=== PATIENT | male | born 1940 | race Caucasian/White ===

== ENCOUNTER 2018-10-22 07:04 | Outpatient (CLI) | payer MEDICARE, BC ==
[~2018-10-22] VITALS: Ht 177.8 cm; Wt 117.9 kg
[~2018-10-22 07:04] MED LIST: AMIO200T40 PO; ASPI-1071 PO; CARV6.252 PO; EZET1TAB35 PO; FLUO20CA22 PO; HYDR-4069 PO; LISI10TA4 PO; TERA2CAP4 PO; fish oil PO
[2018-10-22] MEDS ORDERED: albuterol 2.5 MG/3 ML nebule NEB ONE (08:00)
== END 2018-10-22 23:59 | disposition home or self-care (01) ==
LOC: RT 07:04
PROVIDERS: ATTEND Internal Medicine Cardiovascular Disease
DX: Z51.81 Encounter for therapeutic drug level monitoring (principal); R91.8 Other nonspecific abnormal finding of lung field; R06.09 Other forms of dyspnea; F17.210 Nicotine dependence, cigarettes, uncomplicated; I11.0 Hypertensive heart disease with heart failure; I50.9 Heart failure, unspecified; J44.9 Chronic obstructive pulmonary disease, unspecified; I25.2 Old myocardial infarction; Z79.82 Long term (current) use of aspirin; Z79.899 Other long term (current) drug therapy
CPT/HCPCS: 71046; 85018; 94010; 94727; 94729

== ENCOUNTER 2020-02-28 07:22 | Emergency (ER) | payer MEDICARE, BC ==
[~2020-02-28] VITALS: Ht 177.8 cm; Wt 121.4 kg
[~2020-02-28 07:22] MED LIST changes: -AMIO200T40 PO; +AMIO200T61 PO; +FLUO-213 PO; -FLUO20CA22 PO
[2020-02-28] MEDS ORDERED: aspirin 81mg tab.chew PO ONE (07:35)
[2020-02-28 07:58] LABS: BASOPHILS % (AUTO) 0.9 % (0-1); EOSINOPHILS # (AUTO) 0.1 X10'3 (0-0.9); EOSINOPHILS % (AUTO) 1.6 % (0-6); HEMATOCRIT 45.9 % (42.0-52.0); HEMOGLOBIN 15.6 g/dl (14.0-17.9); LYMPHOCYTES % (AUTO) 17.6 % (21-51); MEAN PLATELET VOLUME 8.4 FL (7.4-10.4); MONOCYTES # (AUTO) 0.6 X10'3 (0-0.9); MONOCYTES % (AUTO) 10.1 % (2-12); NEUTROPHILS % (AUTO) 69.8 % (42-75); PLATELET COUNT 136 X10'3 (140-440); RED BLOOD COUNT 4.88 X10'6 (4.70-6.10); RED CELL DISTRIBUTION WIDTH 14.4 % (11.5-14.5); WHITE BLOOD COUNT 5.7 X10'3 (4.5-11.0)
--- NOTE | 2020-02-28 08:01 | NUR ---
Aspirin not given, patient had 4 baby asa given enroute by ems. Dr Carlson aware
[2020-02-28 08:15] LABS: ALANINE AMINOTRANSFERASE 20 U/L (12-78); ALBUMIN 3.3 G/DL (3.4-5.0); ALKALINE PHOSPHATASE 53 IU/L (46-116); ANION GAP 7 (8-16); ASPARTATE AMINO TRANSFERASE 15 U/L (10-37); BILIRUBIN,TOTAL 0.7 MG/DL (0.1-1.0); BLOOD UREA NITROGEN 23 MG/DL (7-18); BUN/CREATININE RATIO 14.1 (5.4-32.0); CALCIUM 9.2 MG/DL (8.5-10.1); CHLORIDE 107 MMOL/L (99-107); CREATININE 1.63 MG/DL (0.60-1.10); GLUCOSE 102 MG/DL (70-104); POTASSIUM 3.7 MMOL/L (3.5-5.1); SODIUM 138 MMOL/L (135-145); TOTAL CARBON DIOXIDE 23.7 MMOL/L (24-32); TOTAL PROTEIN 6.7 G/DL (6.4-8.2); eGFR 41 ML/MIN
[2020-02-28] MEDS ORDERED: normal saline 1000ml 1,000 ML IV SCH (11:39)
[2020-02-28] MEDS ORDERED: ondansetron/PF 4mg/2ml inj IV PRN (11:40)
[2020-02-28] MEDS ORDERED: acetaminophen 325mg tablet PO PRN (11:40)
[2020-02-28] MEDS ORDERED: magnesium hydroxide 30ml (MOM) UD suspension PO PRN (11:40)
[2020-02-28] MEDS ORDERED: morphine 2 MG/ML inj. syringe IV PRN ×2 (11:40)
[2020-02-28] MEDS ORDERED: mag hydrox/Alum hydrox/simeth 30ml oral suspension PO PRN (11:40)
[2020-02-28 12:28] VITALS: BP 128/58
[2020-02-28] MEDS ORDERED: heparin, porcine 5000 units/ml vial SQ SCH (20:00)
== END 2020-02-28 12:31 | disposition home or self-care (01) ==
LOC: ER 07:23 → ED HOLD 11:39 → UNDOADMIN 11:39 → EDBEDREQ 11:46 → UNDODISIN 17:00
DX: R07.89 Other chest pain (principal); I25.10 Atherosclerotic heart disease of native coronary artery without angina pectoris; E78.00 Pure hypercholesterolemia, unspecified; Z95.0 Presence of cardiac pacemaker; Z88.5 Allergy status to narcotic agent; Z79.82 Long term (current) use of aspirin; Z79.899 Other long term (current) drug therapy
CPT/HCPCS: 36415; 71045; 80053; 83735; 83880; 84484; 85025; 93005; 99285; G0378

== ENCOUNTER 2021-03-22 07:28 | Outpatient (CLI) | payer MEDICARE, BC ==
[~2021-03-22 07:28] MED LIST changes: +LISI10TA27 PO; -LISI10TA4 PO; -fish oil PO
[2021-03-22 07:56] LABS: TOTAL HEMOGLOBIN 16.2 G/dl (14.0-18.0)
== END 2021-03-22 23:59 | disposition home or self-care (01) ==
LOC: RT 07:28
PROVIDERS: ATTEND Internal Medicine Cardiovascular Disease
DX: I51.7 Cardiomegaly (principal); J98.8 Other specified respiratory disorders; I50.22 Chronic systolic (congestive) heart failure; M47.814 Spondylosis without myelopathy or radiculopathy, thoracic region; Z79.899 Other long term (current) drug therapy
CPT/HCPCS: 71046; 85018; 94010; 94727; 94729

== ENCOUNTER 2023-06-26 09:55 | Day surgery (SDC) | payer MEDICARE, BC ==
[2023-06-25 09:25] LABS: BASOPHILS % (AUTO) 0.7 % (0-1); EOSINOPHILS # (AUTO) 0.1 X10'3 (0-0.9); HEMATOCRIT 46.1 % (42.0-52.0); HEMOGLOBIN 15.6 g/dl (14.0-17.9); LYMPHOCYTES % (AUTO) 19.2 % (21-51); MEAN CORPUSCULAR HEMOGLOBIN 31.4 PG (27.0-31.0); MEAN CORPUSCULAR HGB CONC 33.9 g/dL (33.0-36.5); MEAN CORPUSCULAR VOLUME 92.6 FL (78-98); MEAN PLATELET VOLUME 7.7 FL (7.4-10.4); MONOCYTES # (AUTO) 0.5 X10'3 (0-0.9); MONOCYTES % (AUTO) 10.2 % (2-12); NEUTROPHILS # (AUTO) 3.5 X10'3 (1.8-7.7); NEUTROPHILS % (AUTO) 67.9 % (42-75); PLATELET COUNT 145 X10'3 (140-440); RED BLOOD COUNT 4.98 X10'6 (4.70-6.10); RED CELL DISTRIBUTION WIDTH 14.7 % (11.5-14.5); WHITE BLOOD COUNT 5.1 X10'3 (4.5-11.0)
[2023-06-25 09:32] LABS: ALBUMIN 3.3 G/DL (3.4-5.0); ANION GAP 10 (8-16); CALCIUM 9.6 MG/DL (8.5-10.1); CHLORIDE 102 MMOL/L (99-107); CREATININE 1.93 MG/DL (0.60-1.10); GLUCOSE 96 MG/DL (70-104); POTASSIUM 4.4 MMOL/L (3.5-5.1); SODIUM 136 MMOL/L (135-145); TOTAL CARBON DIOXIDE 24.3 MMOL/L (24-32); eGFR 33 ML/MIN
[2023-06-25 09:35] LABS: APTT 29 SECONDS (22-32); BLOOD UREA NITROGEN 32 MG/DL (7-18); BUN/CREATININE RATIO 16.6 (10.0-20.0); INR 1.1 INR; PROTHROMBIN TIME 11.5 SECONDS (9.0-12.0)
[2023-06-26] VITALS (11 sets, daily range): BP systolic 88–130; BP diastolic 33–73; PULSE 70–73; RESP 12–27; TEMP 97.5; O2SAT 95–98
[~2023-06-26] VITALS: Ht 177.8 cm; Wt 107.5 kg
[~2023-06-26 09:55] MED LIST changes: +AMI200T PO; -AMIO200T61 PO
[2023-06-26] MEDS ORDERED: acetylcysteine 200 MG/ml 4ml vial PO PRN (10:15)
[2023-06-26] MEDS ORDERED: diphenhydrAMINE 25mg capsule PO PRN (10:15)
[2023-06-26] MEDS ORDERED: normal saline 1,000 ML IV SCH (10:15)
[2023-06-26] MEDS ORDERED: LORazepam 0.5 MG tablet PO PRN (10:15)
[2023-06-26] MEDS ORDERED: sodium bicarbonate 1meq/ml syr 150 ML in dextrose 5%-water 1,000 ML IV SCH (10:20)
[2023-06-26] MEDS ORDERED: nitroGLYCERIN-Tridil 50MG/D5W 250 ML IV ONE (11:24)
[2023-06-26] MEDS ORDERED: verapamil 2.5 mg/ml inj IV ONE (11:25)
[2023-06-26] MEDS ORDERED: midazolam 1 mg/ML 2ml injection ONE (11:25)
[2023-06-26] MEDS ORDERED: LIDOcaine 1% 30ml preserv. free vial ONE (11:25)
[2023-06-26] MEDS ORDERED: iohexol 350MG/ML 100ml bottle IV ONE (11:26)
[2023-06-26] MEDS ORDERED: heparin 1,000unit/ml 10ml vial 10 ML ONE (11:26)
[2023-06-26] MEDS ORDERED: iohexol 350 MG/ML 50ML vial IV ONE (11:26)
[2023-06-26] MEDS ORDERED: fentaNYL/PF 50MCG/1 ML 2ML syringe ONE (11:26)
[2023-06-26] MEDS ORDERED: LIDOcaine 1% (10mg/ml) 2ml vial ONE ×2 (11:27→11:36)
[2023-06-26] MEDS ORDERED: EZET-59 PO (12:14)
[2023-06-26] MEDS ORDERED: OMEG100037 PO (12:14)
[2023-06-26] MEDS ORDERED: ASPI-1265 PO (12:14)
[2023-06-26] MEDS ORDERED: CARV-50 PO (12:14)
[2023-06-26 12:37] LABS: ISTAT HGB ART 13.9 g/dl (14.0-17.9); ISTAT Hct ART 41 %PCV (42-52); ISTAT O2 SATURATION ARTERIAL 96 % (95-98); ISTAT SOURCE ART
[2023-06-26 13:08] LABS: ISTAT HGB MIX 14.3 g/dl (14.0-17.9); ISTAT Hct MIX 42 %PCV (42-52); ISTAT O2 SATURATION MIX VENOUS 68 % (60-80); ISTAT SOURCE VEN
== END 2023-06-26 17:45 | disposition home or self-care (01) ==
LOC: SSTAY O 09:55
PROVIDERS: ATTEND Internal Medicine Cardiovascular Disease
DX: T82.855A Stenosis of coronary artery stent, initial encounter (principal); I25.810 Atherosclerosis of coronary artery bypass graft(s) without angina pectoris; I11.0 Hypertensive heart disease with heart failure; I50.30 Unspecified diastolic (congestive) heart failure; I48.0 Paroxysmal atrial fibrillation; I49.5 Sick sinus syndrome; E78.5 Hyperlipidemia, unspecified; I08.1 Rheumatic disorders of both mitral and tricuspid valves; G47.33 Obstructive sleep apnea (adult) (pediatric); E66.9 Obesity, unspecified; Z68.35 Body mass index [BMI] 35.0-35.9, adult; J44.9 Chronic obstructive pulmonary disease, unspecified; F32.A Depression, unspecified; N40.0 Benign prostatic hyperplasia without lower urinary tract symptoms; M19.90 Unspecified osteoarthritis, unspecified site; Z95.0 Presence of cardiac pacemaker; Z98.890 Other specified postprocedural states; Z79.899 Other long term (current) drug therapy; Z87.891 Personal history of nicotine dependence; Z88.5 Allergy status to narcotic agent; Y84.0 Cardiac catheterization as the cause of abnormal reaction of the patient, or of later complication, without mention of misadventure at the time of the procedure; Y92.89 Other specified places as the place of occurrence of the external cause
CPT/HCPCS: 36415; 76937; 80048; 82803; 85014; 85025; 85610; 85730; 93005; 93461; 99152; 99153; A6258; J1644; J2250; J3010; J3490; J7030; J7070; Q9967; A6402; C1725; C1751; C1894

== ENCOUNTER 2023-11-16 21:59 | Inpatient (IN) | payer MEDICARE, BC ==
[~2023-11-16] VITALS: Ht 177.8 cm; Wt 104.0 kg
[~2023-11-16 21:59] MED LIST changes: -ASPI-1071 PO; +ASPI-1265 PO; +CARV-50 PO; -CARV6.252 PO; +EZET-59 PO; -EZET1TAB35 PO; +OMEG100037 PO
[2023-11-16] MEDS ORDERED: normal saline 1000ML IV soln IVB ONE (22:20)
[2023-11-16 22:39] LABS: RED BLOOD COUNT 1.49 X10'6 (4.70-6.10)
[2023-11-16 22:41] LABS: MEAN CORPUSCULAR HEMOGLOBIN 26.5 PG (27.0-31.0); MEAN CORPUSCULAR HGB CONC 31.7 g/dL (33.0-36.5); MEAN CORPUSCULAR VOLUME 83.6 FL (78-98); MEAN PLATELET VOLUME 7.3 FL (7.4-10.4); PLATELET COUNT 101 X10'3 (140-440); RED CELL DISTRIBUTION WIDTH 16.8 % (11.5-14.5)
[2023-11-16 22:43] LABS: INR 1.9 INR; PROTHROMBIN TIME 19.9 SECONDS (9.0-12.0)
[2023-11-16 22:54] LABS: ALBUMIN/GLOBULIN RATIO 0.7 (1.1-1.5); ALKALINE PHOSPHATASE 13 IU/L (46-116); ANION GAP 14 (8-16); ASPARTATE AMINO TRANSFERASE 9 U/L (10-37); BILIRUBIN,TOTAL 0.2 MG/DL (0.1-1.0); BLOOD UREA NITROGEN 20 MG/DL (7-18); BUN/CREATININE RATIO 24.4 (10.0-20.0); CREATININE 0.82 MG/DL (0.60-1.10); GLUCOSE 68 MG/DL (70-104); PRO BRAIN NATRIURETIC PEPTIDE 349 PG/ML (0-450); SODIUM 148 MMOL/L (135-145); TOTAL PROTEIN 2.4 G/DL (6.4-8.2); eCRCL 69 ML/MIN; eGFR 90 ML/MIN
[2023-11-16] MEDS ORDERED: pantoprazole 40 MG vial IV ONE (23:05)
[2023-11-16] MEDS ORDERED: pantoprazole 40mg IV 80 MG in normal saline 100ml IV soln 100 ML IV ONE (23:05)
[2023-11-16 23:07] LABS: HEMATOCRIT 12.4 % (42.0-52.0); HEMOGLOBIN 3.9 g/dl (14.0-17.9)
[2023-11-16] MEDS ORDERED: acetaminophen 1,000mg/100ml IV 100 ML IV STA (23:10)
[2023-11-16] MEDS ORDERED: tranexamic acid inj. 1,000 MG in normal saline 100ml IV soln 90 ML IV ONE (23:10)
[2023-11-16 23:23] LABS: CHLORIDE 125 MMOL/L (99-107)
[2023-11-16 23:25] LABS: ALANINE AMINOTRANSFERASE < 6 U/L (12-78)
[2023-11-16 23:26] LABS: CALCIUM < 5.0 MG/DL (8.5-10.1); TOTAL CARBON DIOXIDE 9 MMOL/L (24-32)
[2023-11-16 23:27] LABS: POTASSIUM 1.7 MMOL/L (3.5-5.1)
[2023-11-16 23:45] VITALS: BP 90/51; PULSE 70; RESP 13; TEMP 97.7
[2023-11-16] MEDS ORDERED: DAPA10TA PO (23:45)
[2023-11-16] MEDS ORDERED: SPIR25TA5 PO (23:45)
[2023-11-17] VITALS (20 sets, daily range): BP systolic 80–106; BP diastolic 36–68; PULSE 70–74; RESP 12–31; TEMP 97.5–98.5; O2SAT 94–98
[2023-11-17 00:40] LABS: ALANINE AMINOTRANSFERASE 14 U/L (12-78); ALBUMIN 2.8 G/DL (3.4-5.0); ALBUMIN/GLOBULIN RATIO 0.7 (1.1-1.5); ALKALINE PHOSPHATASE 43 IU/L (46-116); ANION GAP 10 (8-16); ASPARTATE AMINO TRANSFERASE 19 U/L (10-37); BILIRUBIN,TOTAL 0.5 MG/DL (0.1-1.0); BLOOD UREA NITROGEN 49 MG/DL (7-18); BUN/CREATININE RATIO 19.6 (10.0-20.0); CHLORIDE 105 MMOL/L (99-107); GLUCOSE 134 MG/DL (70-104); POTASSIUM 4.8 MMOL/L (3.5-5.1); TOTAL CARBON DIOXIDE 19.9 MMOL/L (24-32); TOTAL PROTEIN 6.6 G/DL (6.4-8.2); eCRCL 23 ML/MIN; eGFR 25 ML/MIN
[2023-11-17 00:45] LABS: SODIUM 135 MMOL/L (135-145)
[2023-11-17 00:46] LABS: CALCIUM 9.3 MG/DL (8.5-10.1)
[2023-11-17 01:28] LABS: HEMATOCRIT 26.2 % (42.0-52.0); HEMOGLOBIN 8.3 g/dl (14.0-17.9); MEAN CORPUSCULAR HEMOGLOBIN 25.6 PG (27.0-31.0); MEAN CORPUSCULAR HGB CONC 31.6 g/dL (33.0-36.5); MEAN CORPUSCULAR VOLUME 81.1 FL (78-98); MEAN PLATELET VOLUME 7.9 FL (7.4-10.4); PLATELET COUNT 206 X10'3 (140-440); RED BLOOD COUNT 3.23 X10'6 (4.70-6.10); RED CELL DISTRIBUTION WIDTH 16.5 % (11.5-14.5)
[2023-11-17 01:54] LABS: TOTAL CELLS COUNTED 100
[2023-11-17 01:55] LABS: ANISOCYTOSIS 1+; PLATELET ESTIMATE DECREASED
[2023-11-17 01:57] LABS: ELLIPTOCYTES 1+; HYPOCHROMASIA 1+; POIKILOCYTOSIS 1+
[2023-11-17] MEDS: ringers solution, lacted 1,000 ML IV SCH ×2 (04:44→18:43)
[2023-11-17 05:04] LABS: BILIRUBIN,URINE NEGATIVE (Neg); CLARITY,URINE SLIGHTLY CLOUDY (Clear); COLOR,URINE YELLOW (Yellow); GLUCOSE, URINE 250 mg/dl (Neg); KETONES,URINE NEGATIVE (Neg); LEUKOCYTE ESTERASE ,URINE TRACE (Neg); NITRITES, URINE NEGATIVE (Neg); OCCULT BLOOD,URINE NEGATIVE (Neg); PH,URINE 5.5 (4.8-8.0); PROTEIN,URINE NEGATIVE (Neg); UROBILINOGEN,URINE 0.2 E.U/dL (0.2-1.0)
[2023-11-17 05:14] LABS: UA COLLECTION TYPE CLN CATCH MIDSTREAM
[2023-11-17 05:15] LABS: MUCUS STRANDS FEW /LPF (Neg); SQUAMOUS EPITHELIAL CELL,UR MODERATE /LPF (FEW)
[2023-11-17 05:16] LABS: BACTERIA,URINE 2+ /HPF (Neg); RBC,URINE NONE SEEN /HPF (0-2)
[2023-11-17 05:50] LABS: BASOPHILS % (AUTO) 0.1 % (0-1); EOSINOPHILS % (AUTO) 0 % (0-6); HEMATOCRIT 29.4 % (42.0-52.0); HEMOGLOBIN 9.5 g/dl (14.0-17.9); LYMPHOCYTES # (AUTO) 0.7 X10'3 (1.1-4.8); LYMPHOCYTES % (AUTO) 6.5 % (21-51); MEAN CORPUSCULAR HEMOGLOBIN 26.3 PG (27.0-31.0); MEAN CORPUSCULAR HGB CONC 32.5 g/dL (33.0-36.5); MEAN CORPUSCULAR VOLUME 80.9 FL (78-98); MEAN PLATELET VOLUME 7.2 FL (7.4-10.4); MONOCYTES # (AUTO) 1.4 X10'3 (0-0.9); MONOCYTES % (AUTO) 12.6 % (2-12); NEUTROPHILS # (AUTO) 9.1 X10'3 (1.8-7.7); NEUTROPHILS % (AUTO) 80.8 % (42-75); PLATELET COUNT 164 X10'3 (140-440); RED BLOOD COUNT 3.63 X10'6 (4.70-6.10); WHITE BLOOD COUNT 11.2 X10'3 (4.5-11.0)
[2023-11-17] MEDS: pantoprazole 40MG/NS 100ML BAG 100 ML IV SCH ×2 (08:25→20:19)
[2023-11-17] MEDS ORDERED: pneumococcal 23-VAL P-sac vacc 25 mcg/0.5ml vial IMVAC ONE (10:00)
[2023-11-17 11:59] LABS: ALANINE AMINOTRANSFERASE 12 U/L (12-78); ALBUMIN 2.6 G/DL (3.4-5.0); ALBUMIN/GLOBULIN RATIO 0.8 (1.1-1.5); ALKALINE PHOSPHATASE 38 IU/L (46-116); ANION GAP 7 (8-16); ASPARTATE AMINO TRANSFERASE 19 U/L (10-37); BILIRUBIN,TOTAL 1.1 MG/DL (0.1-1.0); BLOOD UREA NITROGEN 41 MG/DL (7-18); BUN/CREATININE RATIO 20.3 (10.0-20.0); CHLORIDE 107 MMOL/L (99-107); CREATININE 2.02 MG/DL (0.60-1.10); GLUCOSE 99 MG/DL (70-104); POTASSIUM 4.5 MMOL/L (3.5-5.1); SODIUM 135 MMOL/L (135-145); TOTAL CARBON DIOXIDE 21.4 MMOL/L (24-32); TOTAL PROTEIN 5.9 G/DL (6.4-8.2); eCRCL 28 ML/MIN; eGFR 32 ML/MIN
[2023-11-17] MEDS: HYDROcodone/acetaminophen 5mg/325mg tablet PO PRN ×2 (14:32→20:20)
[2023-11-17 20:22] LABS: HEMATOCRIT 24.3 % (42.0-52.0); MEAN CORPUSCULAR HEMOGLOBIN 26.3 PG (27.0-31.0); MEAN CORPUSCULAR HGB CONC 32.8 g/dL (33.0-36.5); MEAN CORPUSCULAR VOLUME 80.3 FL (78-98); PLATELET COUNT 170 X10'3 (140-440); RED BLOOD COUNT 3.02 X10'6 (4.70-6.10); RED CELL DISTRIBUTION WIDTH 16.5 % (11.5-14.5); WHITE BLOOD COUNT 9.3 X10'3 (4.5-11.0)
[2023-11-18] VITALS (25 sets, daily range): BP systolic 87–132; BP diastolic 36–79; PULSE 16–97; RESP 13–25; TEMP 97.5–98.1; O2SAT 93–100
[2023-11-18] MEDS: ringers solution, lacted 1,000 ML IV SCH ×2 (01:51→23:40)
[2023-11-18 02:30] LABS: HEMATOCRIT 22.5 % (42.0-52.0); HEMOGLOBIN 7.6 g/dl (14.0-17.9); MEAN CORPUSCULAR HEMOGLOBIN 27.2 PG (27.0-31.0); MEAN CORPUSCULAR HGB CONC 33.9 g/dL (33.0-36.5); MEAN CORPUSCULAR VOLUME 80.1 FL (78-98); MEAN PLATELET VOLUME 7.6 FL (7.4-10.4); PLATELET COUNT 156 X10'3 (140-440); RED BLOOD COUNT 2.82 X10'6 (4.70-6.10); RED CELL DISTRIBUTION WIDTH 16.7 % (11.5-14.5); WHITE BLOOD COUNT 9.1 X10'3 (4.5-11.0)
[2023-11-18 02:42] LABS: ALANINE AMINOTRANSFERASE 17 U/L (12-78); ALBUMIN 2.4 G/DL (3.4-5.0); ALBUMIN/GLOBULIN RATIO 0.7 (1.1-1.5); ALKALINE PHOSPHATASE 38 IU/L (46-116); ANION GAP 8 (8-16); ASPARTATE AMINO TRANSFERASE 17 U/L (10-37); BILIRUBIN,TOTAL 0.6 MG/DL (0.1-1.0); BLOOD UREA NITROGEN 46 MG/DL (7-18); CALCIUM 8.9 MG/DL (8.5-10.1); CHLORIDE 108 MMOL/L (99-107); CREATININE 2.09 MG/DL (0.60-1.10); GLUCOSE 109 MG/DL (70-104); POTASSIUM 4.8 MMOL/L (3.5-5.1); SODIUM 137 MMOL/L (135-145); TOTAL CARBON DIOXIDE 21.4 MMOL/L (24-32); TOTAL PROTEIN 5.9 G/DL (6.4-8.2); eCRCL 27 ML/MIN; eGFR 30 ML/MIN
[2023-11-18 03:21] LABS: TOTAL CELLS COUNTED 100
[2023-11-18 03:22] LABS: ANISOCYTOSIS 1+; PLATELET ESTIMATE NORMAL
[2023-11-18 03:25] LABS: ELLIPTOCYTES 2+; LARGE PLATELETS FEW; SCHISTOCYTES FEW
[2023-11-18] MEDS: pantoprazole 40MG/NS 100ML BAG 100 ML IV SCH ×2 (07:39→19:48)
[2023-11-18] MEDS ORDERED: fentaNYL/PF 50MCG/1 ML 2ML syringe ONE (08:26)
[2023-11-18] MEDS ORDERED: LIDOcaine Viscous 15ml cup ONE (08:26)
[2023-11-18] MEDS ORDERED: MIDAZolam 1 MG/ML 5ML VIAL ONE (08:26)
[2023-11-18] MEDS ORDERED: APIX5TAB3 PO (11:29)
[2023-11-18] MEDS: OMEGA-3/DHA/EPA/FISH OIL 1 EACH CAPSULE.DR PO SCH ×2 (13:06→19:48)
[2023-11-18 18:55] LABS: MEAN CORPUSCULAR HEMOGLOBIN 27.6 PG (27.0-31.0); MEAN CORPUSCULAR HGB CONC 33.2 g/dL (33.0-36.5); MEAN CORPUSCULAR VOLUME 83.1 FL (78-98); MEAN PLATELET VOLUME 7.8 FL (7.4-10.4); PLATELET COUNT 135 X10'3 (140-440); RED BLOOD COUNT 2.54 X10'6 (4.70-6.10); RED CELL DISTRIBUTION WIDTH 16.9 % (11.5-14.5); WHITE BLOOD COUNT 7.9 X10'3 (4.5-11.0)
[2023-11-18 18:59] LABS: HEMATOCRIT 21.1 % (42.0-52.0)
[2023-11-18] MEDS: atorvastatin 10mg tablet PO SCH (19:48)
[2023-11-18] MEDS: ezetimibe 10mg tablet PO SCH (19:49)
[2023-11-18] MEDS: carVEDilol 12.5mg tablet PO SCH (19:49)
[2023-11-18] MEDS: apixaban 5mg tablet PO SCH (19:50)
[2023-11-18] MEDS: HYDROcodone/acetaminophen 10/325mg tab PO PRN (23:40)
[2023-11-19] VITALS (7 sets, daily range): BP systolic 95–113; BP diastolic 44–75; PULSE 64–70; RESP 15–29; TEMP 97.3–97.9; O2SAT 91–96
[2023-11-19] MEDS: HYDROcodone/acetaminophen 10/325mg tab PO PRN ×3 (05:36→17:01)
[2023-11-19 06:55] LABS: BASOPHILS % (AUTO) 0.4 % (0-1); EOSINOPHILS # (AUTO) 0.2 X10'3 (0-0.9); EOSINOPHILS % (AUTO) 2.5 % (0-6); HEMATOCRIT 22.7 % (42.0-52.0); HEMOGLOBIN 7.5 g/dl (14.0-17.9); LYMPHOCYTES # (AUTO) 0.8 X10'3 (1.1-4.8); LYMPHOCYTES % (AUTO) 11.2 % (21-51); MEAN CORPUSCULAR HEMOGLOBIN 27.3 PG (27.0-31.0); MEAN CORPUSCULAR VOLUME 82.8 FL (78-98); MEAN PLATELET VOLUME 7.5 FL (7.4-10.4); MONOCYTES % (AUTO) 13.9 % (2-12); NEUTROPHILS # (AUTO) 5.2 X10'3 (1.8-7.7); PLATELET COUNT 142 X10'3 (140-440); RED BLOOD COUNT 2.74 X10'6 (4.70-6.10); RED CELL DISTRIBUTION WIDTH 17.5 % (11.5-14.5); WHITE BLOOD COUNT 7.3 X10'3 (4.5-11.0)
[2023-11-19 07:33] LABS: ALANINE AMINOTRANSFERASE 14 U/L (12-78); ALBUMIN 2.3 G/DL (3.4-5.0); ALBUMIN/GLOBULIN RATIO 0.7 (1.1-1.5); ALKALINE PHOSPHATASE 37 IU/L (46-116); ANION GAP 9 (8-16); ASPARTATE AMINO TRANSFERASE 20 U/L (10-37); BILIRUBIN,TOTAL 0.8 MG/DL (0.1-1.0); BLOOD UREA NITROGEN 38 MG/DL (7-18); BUN/CREATININE RATIO 20.9 (10.0-20.0); CHLORIDE 106 MMOL/L (99-107); CREATININE 1.82 MG/DL (0.60-1.10); GLUCOSE 95 MG/DL (70-104); POTASSIUM 3.9 MMOL/L (3.5-5.1); SODIUM 136 MMOL/L (135-145); TOTAL CARBON DIOXIDE 20.6 MMOL/L (24-32); TOTAL PROTEIN 5.5 G/DL (6.4-8.2); eCRCL 31 ML/MIN; eGFR 36 ML/MIN
[2023-11-19] MEDS: apixaban 5mg tablet PO SCH (08:00)
[2023-11-19] MEDS: DAPAGLIFLOZIN 10MG TABLET PO SCH (08:00)
[2023-11-19] MEDS: FLUoxetine 20mg capsule PO SCH (09:18)
[2023-11-19] MEDS: Terazosin 1mg capsule PO SCH (09:18)
[2023-11-19] MEDS: amiodarone 200mg tablet PO SCH (09:19)
[2023-11-19] MEDS: carVEDilol 12.5mg tablet PO SCH ×2 (09:19→20:00)
[2023-11-19] MEDS: OMEGA-3/DHA/EPA/FISH OIL 1 EACH CAPSULE.DR PO SCH ×3 (09:19→22:40)
[2023-11-19] MEDS ORDERED: pneumococcal 23-VAL P-sac vacc 25 mcg/0.5ml vial IMVAC ONE (10:00)
[2023-11-19] MEDS: pantoprazole 40MG/NS 100ML BAG 100 ML IV SCH (10:07)
[2023-11-19] MEDS: cycloSPORINE 0.05% ophthalmic emulsion EACHEYE SCH ×2 (12:51→22:40)
[2023-11-19] MEDS: ringers solution, lacted 1,000 ML IV SCH ×2 (13:37→22:41)
[2023-11-19] MEDS: atorvastatin 10mg tablet PO SCH (22:39)
[2023-11-19] MEDS: ezetimibe 10mg tablet PO SCH (22:39)
[2023-11-19] MEDS: pantoprazole 40mg Tablet.DR PO SCH (22:40)
[2023-11-20] VITALS (7 sets, daily range): BP systolic 84–107; BP diastolic 49–58; PULSE 67–79; RESP 15–18; TEMP 97.3–98.8; O2SAT 94–97
[2023-11-20 07:38] LABS: ALANINE AMINOTRANSFERASE 17 U/L (12-78); ALBUMIN 2.1 G/DL (3.4-5.0); ALBUMIN/GLOBULIN RATIO 0.6 (1.1-1.5); ALKALINE PHOSPHATASE 40 IU/L (46-116); ANION GAP 5 (8-16); ASPARTATE AMINO TRANSFERASE 25 U/L (10-37); BILIRUBIN,TOTAL 0.7 MG/DL (0.1-1.0); BLOOD UREA NITROGEN 28 MG/DL (7-18); BUN/CREATININE RATIO 17.5 (10.0-20.0); CALCIUM 9.3 MG/DL (8.5-10.1); CHLORIDE 108 MMOL/L (99-107); GLUCOSE 100 MG/DL (70-104); POTASSIUM 4.1 MMOL/L (3.5-5.1); SODIUM 136 MMOL/L (135-145); TOTAL CARBON DIOXIDE 23.2 MMOL/L (24-32); TOTAL PROTEIN 5.5 G/DL (6.4-8.2); eCRCL 35 ML/MIN; eGFR 41 ML/MIN
[2023-11-20] MEDS: OMEGA-3/DHA/EPA/FISH OIL 1 EACH CAPSULE.DR PO SCH ×3 (08:00→21:11)
[2023-11-20] MEDS: apixaban 2.5mg tablet PO SCH ×2 (08:00→20:00)
[2023-11-20] MEDS: cycloSPORINE 0.05% ophthalmic emulsion EACHEYE SCH ×2 (08:00→21:11)
[2023-11-20] MEDS: amiodarone 200mg tablet PO SCH (08:45)
[2023-11-20] MEDS: pantoprazole 40mg Tablet.DR PO SCH ×2 (08:45→21:11)
[2023-11-20] MEDS: DAPAGLIFLOZIN 10MG TABLET PO SCH (08:46)
[2023-11-20] MEDS: FLUoxetine 20mg capsule PO SCH (08:46)
[2023-11-20] MEDS: Terazosin 1mg capsule PO SCH (08:46)
[2023-11-20 09:13] LABS: BASOPHILS % (AUTO) 0.5 % (0-1); EOSINOPHILS # (AUTO) 0.2 X10'3 (0-0.9); EOSINOPHILS % (AUTO) 3.1 % (0-6); HEMATOCRIT 23.6 % (42.0-52.0); HEMOGLOBIN 7.7 g/dl (14.0-17.9); LYMPHOCYTES # (AUTO) 0.9 X10'3 (1.1-4.8); LYMPHOCYTES % (AUTO) 12.3 % (21-51); MEAN CORPUSCULAR HEMOGLOBIN 27.2 PG (27.0-31.0); MEAN CORPUSCULAR HGB CONC 32.4 g/dL (33.0-36.5); MEAN CORPUSCULAR VOLUME 83.8 FL (78-98); MEAN PLATELET VOLUME 7.4 FL (7.4-10.4); MONOCYTES % (AUTO) 14.2 % (2-12); NEUTROPHILS # (AUTO) 4.8 X10'3 (1.8-7.7); NEUTROPHILS % (AUTO) 69.9 % (42-75); PLATELET COUNT 155 X10'3 (140-440); RED BLOOD COUNT 2.82 X10'6 (4.70-6.10); RED CELL DISTRIBUTION WIDTH 17.4 % (11.5-14.5); WHITE BLOOD COUNT 6.9 X10'3 (4.5-11.0)
[2023-11-20] MEDS: HYDROcodone/acetaminophen 10/325mg tab PO PRN (15:56)
[2023-11-20] MEDS: ringers solution, lacted 1,000 ML IV SCH (18:13)
[2023-11-20] MEDS ORDERED: normal saline 500ml IV soln 500 ML IV ONE (19:15)
[2023-11-20] MEDS ORDERED: carvedilol 6.25mg tablet PO SCH (20:00)
[2023-11-20] MEDS ORDERED: Terazosin 1mg capsule PO SCH (21:00)
[2023-11-20] MEDS: ezetimibe 10mg tablet PO SCH (21:10)
[2023-11-20] MEDS: atorvastatin 10mg tablet PO SCH (21:10)
[2023-11-21] VITALS (14 sets, daily range): BP systolic 82–130; BP diastolic 44–82; PULSE 68–88; RESP 12–25; TEMP 97.5–98.5; O2SAT 92–99
[2023-11-21 06:17] LABS: BASOPHILS % (AUTO) 0.6 % (0-1); EOSINOPHILS # (AUTO) 0.1 X10'3 (0-0.9); EOSINOPHILS % (AUTO) 2.2 % (0-6); HEMOGLOBIN 7.2 g/dl (14.0-17.9); LYMPHOCYTES # (AUTO) 0.6 X10'3 (1.1-4.8); LYMPHOCYTES % (AUTO) 10.7 % (21-51); MEAN CORPUSCULAR HEMOGLOBIN 27.5 PG (27.0-31.0); MEAN CORPUSCULAR VOLUME 83.3 FL (78-98); MEAN PLATELET VOLUME 7.3 FL (7.4-10.4); MONOCYTES # (AUTO) 0.8 X10'3 (0-0.9); MONOCYTES % (AUTO) 13.8 % (2-12); NEUTROPHILS # (AUTO) 4.1 X10'3 (1.8-7.7); NEUTROPHILS % (AUTO) 72.7 % (42-75); PLATELET COUNT 144 X10'3 (140-440); RED BLOOD COUNT 2.63 X10'6 (4.70-6.10); RED CELL DISTRIBUTION WIDTH 17.5 % (11.5-14.5); WHITE BLOOD COUNT 5.6 X10'3 (4.5-11.0)
[2023-11-21 06:22] LABS: HEMATOCRIT 21.9 % (42.0-52.0)
[2023-11-21 06:54] LABS: ALANINE AMINOTRANSFERASE 25 U/L (12-78); ALBUMIN 2.1 G/DL (3.4-5.0); ALBUMIN/GLOBULIN RATIO 0.7 (1.1-1.5); ALKALINE PHOSPHATASE 42 IU/L (46-116); ANION GAP 6 (8-16); ASPARTATE AMINO TRANSFERASE 28 U/L (10-37); BILIRUBIN,TOTAL 0.9 MG/DL (0.1-1.0); BLOOD UREA NITROGEN 22 MG/DL (7-18); BUN/CREATININE RATIO 14.6 (10.0-20.0); CHLORIDE 107 MMOL/L (99-107); CREATININE 1.51 MG/DL (0.60-1.10); GLUCOSE 99 MG/DL (70-104); POTASSIUM 3.9 MMOL/L (3.5-5.1); SODIUM 138 MMOL/L (135-145); TOTAL CARBON DIOXIDE 24.9 MMOL/L (24-32); TOTAL PROTEIN 5.3 G/DL (6.4-8.2); eCRCL 38 ML/MIN; eGFR 44 ML/MIN
[2023-11-21] MEDS: apixaban 2.5mg tablet PO SCH (08:00)
[2023-11-21] MEDS: DAPAGLIFLOZIN 10MG TABLET PO SCH (08:28)
[2023-11-21] MEDS: FLUoxetine 20mg capsule PO SCH (08:28)
[2023-11-21] MEDS: amiodarone 200mg tablet PO SCH (08:28)
[2023-11-21] MEDS: pantoprazole 40mg Tablet.DR PO SCH ×2 (08:28→19:45)
[2023-11-21] MEDS: ringers solution, lacted 1,000 ML IV SCH ×2 (08:28→22:49)
[2023-11-21] MEDS: OMEGA-3/DHA/EPA/FISH OIL 1 EACH CAPSULE.DR PO SCH ×3 (08:28→19:50)
[2023-11-21] MEDS: HYDROcodone/acetaminophen 10/325mg tab PO PRN (10:03)
[2023-11-21] MEDS: cycloSPORINE 0.05% ophthalmic emulsion EACHEYE SCH ×2 (10:04→19:45)
[2023-11-21] MEDS ORDERED: LIDOcaine Viscous 15ml cup ONE (17:08)
[2023-11-21] MEDS ORDERED: MIDAZolam 1 MG/ML 5ML VIAL ONE (17:41)
[2023-11-21] MEDS ORDERED: fentaNYL/PF 50MCG/1 ML 2ML syringe ONE (17:41)
[2023-11-21] MEDS: atorvastatin 10mg tablet PO SCH (19:44)
[2023-11-21] MEDS: ezetimibe 10mg tablet PO SCH (19:44)
[2023-11-21 19:45] LABS: HEMATOCRIT 26.1 % (42.0-52.0); HEMOGLOBIN 8.6 g/dl (14.0-17.9); MEAN CORPUSCULAR HEMOGLOBIN 27.6 PG (27.0-31.0); MEAN CORPUSCULAR VOLUME 83.8 FL (78-98); MEAN PLATELET VOLUME 7.3 FL (7.4-10.4); PLATELET COUNT 163 X10'3 (140-440); RED BLOOD COUNT 3.11 X10'6 (4.70-6.10); RED CELL DISTRIBUTION WIDTH 17.8 % (11.5-14.5); WHITE BLOOD COUNT 6.2 X10'3 (4.5-11.0)
[2023-11-21] MEDS: HYDROcodone/acetaminophen 5mg/325mg tablet PO PRN (19:50)
[2023-11-21 19:54] LABS: INR 1.1 INR; PROTHROMBIN TIME 11.9 SECONDS (9.0-12.0)
[2023-11-22] MEDS: ringers solution, lacted 1,000 ML IV SCH (05:46)
[2023-11-22 06:24] VITALS: BP 100/82; PULSE 68; RESP 24; TEMP 98.8; O2SAT 95
[2023-11-22] MEDS: OMEGA-3/DHA/EPA/FISH OIL 1 EACH CAPSULE.DR PO SCH ×3 (07:43→20:23)
[2023-11-22] MEDS: DAPAGLIFLOZIN 10MG TABLET PO SCH (07:43)
[2023-11-22] MEDS: amiodarone 200mg tablet PO SCH (07:43)
[2023-11-22] MEDS: FLUoxetine 20mg capsule PO SCH (07:43)
[2023-11-22] MEDS: pantoprazole 40mg Tablet.DR PO SCH ×2 (07:43→20:23)
[2023-11-22] MEDS: cycloSPORINE 0.05% ophthalmic emulsion EACHEYE SCH ×2 (07:43→20:22)
[2023-11-22 10:00] VITALS: BP 110/58; PULSE 72; RESP 16; TEMP 98.1; O2SAT 97
[2023-11-22] MEDS ORDERED: iohexol 300mg/ml 100ml inj. ONE (14:23)
[2023-11-22 18:00] VITALS: BP 108/62; PULSE 70; RESP 18; TEMP 97.9; O2SAT 98
[2023-11-22] MEDS: HYDROcodone/acetaminophen 10/325mg tab PO PRN ×2 (18:13→22:28)
[2023-11-22 20:00] VITALS: RESP 18; O2SAT 98
[2023-11-22] MEDS: atorvastatin 10mg tablet PO SCH (20:23)
[2023-11-22] MEDS: ezetimibe 10mg tablet PO SCH (20:23)
[2023-11-22 22:00] VITALS: BP 116/62; PULSE 70; RESP 18; TEMP 97.4; O2SAT 94
[2023-11-23] MEDS: ringers solution, lacted 1,000 ML IV SCH ×2 (03:25→14:53)
[2023-11-23 06:30] VITALS: BP 122/68; PULSE 70; RESP 18; TEMP 98; O2SAT 96
[2023-11-23 08:15] VITALS: RESP 18; O2SAT 96
[2023-11-23] MEDS: DAPAGLIFLOZIN 10MG TABLET PO SCH (09:00)
[2023-11-23] MEDS: amiodarone 200mg tablet PO SCH (09:03)
[2023-11-23] MEDS: OMEGA-3/DHA/EPA/FISH OIL 1 EACH CAPSULE.DR PO SCH ×3 (09:03→20:07)
[2023-11-23] MEDS: FLUoxetine 20mg capsule PO SCH (09:03)
[2023-11-23] MEDS: pantoprazole 40mg Tablet.DR PO SCH ×2 (09:03→19:52)
[2023-11-23] MEDS: cycloSPORINE 0.05% ophthalmic emulsion EACHEYE SCH ×2 (09:04→19:52)
[2023-11-23] MEDS: HYDROcodone/acetaminophen 10/325mg tab PO PRN ×2 (09:07→23:15)
[2023-11-23 10:00] VITALS: BP 122/64; PULSE 70; RESP 16; TEMP 97.6; O2SAT 96
[2023-11-23] MEDS ORDERED: iohexol 300mg/ml 100ml inj. ONE (14:29)
[2023-11-23 18:00] VITALS: BP 110/62; PULSE 72; RESP 18; TEMP 97.4; O2SAT 96
[2023-11-23] MEDS: HYDROcodone/acetaminophen 5mg/325mg tablet PO PRN (19:11)
[2023-11-23 20:00] VITALS: RESP 18; O2SAT 96
[2023-11-23] MEDS: ezetimibe 10mg tablet PO SCH (20:06)
[2023-11-23] MEDS: atorvastatin 10mg tablet PO SCH (20:07)
[2023-11-23 22:00] VITALS: BP 120/68; PULSE 73; RESP 18; TEMP 98.1; O2SAT 94
[2023-11-24] MEDS: ringers solution, lacted 1,000 ML IV SCH (04:01)
[2023-11-24 06:30] VITALS: BP 138/74; PULSE 70; RESP 18; TEMP 97.9; O2SAT 93
[2023-11-24 07:14] VITALS: RESP 18; O2SAT 93
[2023-11-24] MEDS: DAPAGLIFLOZIN 10MG TABLET PO SCH (08:17)
[2023-11-24] MEDS: amiodarone 200mg tablet PO SCH (08:17)
[2023-11-24] MEDS: OMEGA-3/DHA/EPA/FISH OIL 1 EACH CAPSULE.DR PO SCH ×2 (08:17→13:39)
[2023-11-24] MEDS: pantoprazole 40mg Tablet.DR PO SCH (08:17)
[2023-11-24] MEDS: cycloSPORINE 0.05% ophthalmic emulsion EACHEYE SCH (08:17)
[2023-11-24] MEDS: FLUoxetine 20mg capsule PO SCH (08:17)
[2023-11-24] MEDS: HYDROcodone/acetaminophen 5mg/325mg tablet PO PRN (08:21)
[2023-11-24] MEDS ORDERED: pneumococcal 23-VAL P-sac vacc 25 mcg/0.5ml vial IMVAC ONE (09:50)
[2023-11-24 10:00] VITALS: BP 134/72; PULSE 92; RESP 16; TEMP 97.2; O2SAT 94
[2023-11-24 11:21] LABS: BASOPHILS # (AUTO) 0.1 X10'3 (0-0.2); BASOPHILS % (AUTO) 1.1 % (0-1); EOSINOPHILS # (AUTO) 0.1 X10'3 (0-0.9); EOSINOPHILS % (AUTO) 1.3 % (0-6); HEMATOCRIT 28.2 % (42.0-52.0); HEMOGLOBIN 9.1 g/dl (14.0-17.9); LYMPHOCYTES # (AUTO) 0.5 X10'3 (1.1-4.8); LYMPHOCYTES % (AUTO) 5.9 % (21-51); MEAN CORPUSCULAR HEMOGLOBIN 27.1 PG (27.0-31.0); MEAN CORPUSCULAR HGB CONC 32.3 g/dL (33.0-36.5); MEAN CORPUSCULAR VOLUME 83.9 FL (78-98); MEAN PLATELET VOLUME 7.6 FL (7.4-10.4); MONOCYTES # (AUTO) 1.1 X10'3 (0-0.9); MONOCYTES % (AUTO) 13.1 % (2-12); NEUTROPHILS # (AUTO) 6.6 X10'3 (1.8-7.7); NEUTROPHILS % (AUTO) 78.6 % (42-75); PLATELET COUNT 196 X10'3 (140-440); RED BLOOD COUNT 3.35 X10'6 (4.70-6.10); RED CELL DISTRIBUTION WIDTH 18.4 % (11.5-14.5); WHITE BLOOD COUNT 8.4 X10'3 (4.5-11.0)
[2023-11-24 13:39] VITALS: RESP 16
[2023-11-24] MEDS: HYDROcodone/acetaminophen 10/325mg tab PO PRN (13:39)
== END 2023-11-24 14:20 | DRG 377 ==
LOC: ER 21:59 → ED HOLD 11-17 03:11 → CICU 2S 11-17 04:11 → ORTHO 4S 11-19 05:09
PROVIDERS: ADMIT Internal Medicine; ATTEND Family Medicine
PROC: 30233N1 Transfusion of Nonautologous Red Blood Cells into Peripheral Vein, Percutaneous Approach (ICD-10-PCS; principal; 2023-11-17)
PROC: 0DB68ZX Excision of Stomach, Via Natural or Artificial Opening Endoscopic, Diagnostic (ICD-10-PCS; 2023-11-18)
PROC: BW211ZZ Computerized Tomography (CT Scan) of Abdomen and Pelvis using Low Osmolar Contrast (ICD-10-PCS; 2023-11-22)
DX: K29.01 Acute gastritis with bleeding (principal); N17.0 Acute kidney failure with tubular necrosis; C22.9 Malignant neoplasm of liver, not specified as primary or secondary; S42.292A Other displaced fracture of upper end of left humerus, initial encounter for closed fracture; I50.22 Chronic systolic (congestive) heart failure; I95.9 Hypotension, unspecified; I48.91 Unspecified atrial fibrillation; W18.39XA Other fall on same level, initial encounter; I71.40 Abdominal aortic aneurysm, without rupture, unspecified; D50.0 Iron deficiency anemia secondary to blood loss (chronic); E78.00 Pure hypercholesterolemia, unspecified; I25.10 Atherosclerotic heart disease of native coronary artery without angina pectoris; Z95.1 Presence of aortocoronary bypass graft; Z82.49 Family history of ischemic heart disease and other diseases of the circulatory system; Z87.11 Personal history of peptic ulcer disease; Z79.01 Long term (current) use of anticoagulants; Y93.89 Activity, other specified; Y92.89 Other specified places as the place of occurrence of the external cause; Y99.8 Other external cause status; Z79.899 Other long term (current) drug therapy
CPT/HCPCS: 36415; 36430; 43239; 70450; 71045; 71260; 72125; 73030; 74177; 76770; 80053; 81001; 83605; 83880; 84484; 85007; 85025; 85027; 85610; 86885; 86900; 86901; 86920; 87040; 87081; 87088; 88305; 88342; 90732; 93005; 97116; 97161; 97530; 99152; 99285; A4314; A4349; A4565; A4620; A6212; A6213; A6250; A6258; C9113; G0378; J0131; J2250; J3010; J3490; J7030; J7040; J7120; P9016; Q9967